=== PATIENT | female | born 1955 | race Caucasian/White ===

== ENCOUNTER 2025-04-20 10:15 | Day surgery (SDC) | payer SELFPAY ==
[2025-04-20] VITALS (8 sets, daily range): BP systolic 112–132; BP diastolic 60–68; BMI 27.3
[2025-04-20 14:19] LABS: Glucose - Point of Care 82 mg/dl (70-99)
[2025-04-20 16:02] LABS: Glucose - Point of Care 157 mg/dl (70-99)
== END 2025-04-20 19:02 | disposition short-term general hospital (02) ==
LOC: SDS 10:15
PROVIDERS: ATTENDING PHYSICIAN Internal Medicine Gastroenterology; FAMILY PHYSICIAN Family Medicine
DX: R93.2 Abnormal findings on diagnostic imaging of liver and biliary tract (principal); K80.50 Calculus of bile duct without cholangitis or cholecystitis without obstruction; R10.9 Unspecified abdominal pain; K83.8 Other specified diseases of biliary tract; Z98.84 Bariatric surgery status
CPT/HCPCS: 43264; 43244; 74330; 76000; 82962; C1726; C1769